=== PATIENT | female | born 1935 | race Caucasian/White ===

== ENCOUNTER 2022-03-15 09:39 | Emergency (ER) | payer MEDICARE, OTHER ==
[2022-03-15] MEDS ORDERED: Acetaminophen/HYDROcodone 325-10 MG Tab PO ONE (10:29)
== END 2022-03-15 11:15 | disposition home or self-care (01) ==
LOC: VM.ED 09:39
DX: S42.202A Unspecified fracture of upper end of left humerus, initial encounter for closed fracture (principal); J44.9 Chronic obstructive pulmonary disease, unspecified; W19.XXXA Unspecified fall, initial encounter; Y92.524 Gas station as the place of occurrence of the external cause
CPT/HCPCS: 73030-LT; 73060-LT; 73070-LT; 99283; A9270-GY

== ENCOUNTER 2023-01-05 22:39 | Inpatient (IN) | payer MEDICARE, OTHER ==
[2023-01-05] MEDS ORDERED: Albuterol/Ipratropium 3.0-0.5 MG/3 ML Neb Soln NEB ONE (22:46)
[2023-01-05 23:10] LABS: BASOPHILS PERCENT AUTO 0.3 % (0.2-1.2); EOSINOPHILS PERCENT AUTO 0.3 % (0.0-4.0); HEMOGLOBIN 13.4 g/dL (12.0-16.0); IMMATURE GRAN ABSOLUTE AUTO 0.05 x10^3/uL (0.00-0.07); LYMPHOCYTES ABSOLUTE AUTO 1.1 x10^3/uL (1.0-4.8); LYMPHOCYTES PERCENT AUTO 9.7 % (25.0-50.0); MEAN CORPUSCULAR HEMOGLOBIN 32.7 pg (26.0-32.0); MEAN CORPUSCULAR HGB CONC 34.4 g/dL (32.0-36.0); MEAN CORPUSCULAR VOLUME 95.1 fL (78.0-93.0); MONOCYTES ABSOLUTE AUTO 0.8 x10^3/uL (0.0-0.8); MONOCYTES PERCENT AUTO 7.1 % (2.0-11.0); NEUTROPHILS ABSOLUTE AUTO 9.4 x10^3/uL (1.8-7.7); NEUTROPHILS PERCENT AUTO 82.2 % (50.0-80.0); PLATELET COUNT,PLT 298 x10^3/uL (130-400); WHITE BLOOD CELL COUNT,WBC 11.4 x10^3/uL (4.0-10.0)
[2023-01-05 23:20] LABS: BLOOD UREA NITROGEN,BUN 10 mg/dL (7-18); CALCIUM 9.7 mg/dL (8.5-10.1); CARBON DIOXIDE,CO2 32 mmol/L (21-32); CHLORIDE,CL 97 mmol/L (98-107); CREATININE 0.8 mg/dL (0.55-1.02); GLUCOSE RANDOM 108 mg/dL (70-99); SODIUM,NA 138 mmol/L (136-145)
[2023-01-05 23:21] LABS: ANION GAP 11.7 mmol/L (5-15); ESTIMATED GFR 70 mL/min (>=60); POTASSIUM,K 2.7 mmol/L (3.5-5.1)
[2023-01-05] MEDS: Benzonatate 100 MG Cap PO PRN (23:27)
[2023-01-05] MEDS ORDERED: Potassium Chloride 20 MEQ Tab.ER PO ONE (23:28)
[2023-01-05 23:35] LABS: CORONAVIRUS COVID-19 NAA NEGATIVE (NEGATIVE); INFLUENZA A NAA NEGATIVE (NEGATIVE); INFLUENZA B NAA NEGATIVE (NEGATIVE); RESPIRATORY SYNCYTIAL VIR NAA NEGATIVE (NEGATIVE)
[2023-01-06] MEDS ORDERED: cefTRIAXone 1 GM Vial IVPUSH ONE (00:05)
[2023-01-06] MEDS ORDERED: Azithromycin 500 MG in Sodium Chloride 0.9% 250 ML IV ONE (00:05)
[2023-01-06] MEDS ORDERED: Albuterol 0.042% 1.25 MG/3 ML Neb Soln NEB PRN (03:28)
[2023-01-06] MEDS: Pantoprazole 40 MG Tab.CR PO SCH (06:36)
[2023-01-06] MEDS: Aspirin 325 MG Tab.EC PO SCH (08:40)
[2023-01-06] MEDS: Formoterol/Mometasone 200-5 MCG 13 GM Inhaler INH SCH ×2 (08:40→20:57)
[2023-01-06] MEDS: Potassium Chloride 20 MEQ Tab.ER PO SCH ×4 (08:41→20:58)
[2023-01-06] MEDS: Hydrochlorothiazide 25 MG Tab PO SCH (08:41)
[2023-01-06] MEDS: Tiotropium Bromide 4 GM Inhalation Spray (2.5mcg/1 dose; 10 doses) INH SCH (08:42)
[2023-01-06] MEDS ORDERED: Acetaminophen 325 MG Tab PO PRN (10:37)
[2023-01-06] MEDS ORDERED: Docusate Sodium 100 MG Cap PO PRN (10:37)
[2023-01-06] MEDS ORDERED: Ondansetron 4 MG Tab.DIS PO PRN (10:37)
[2023-01-06] MEDS: Albuterol/Ipratropium 3.0-0.5 MG/3 ML Neb Soln NEB SCH ×4 (11:40→22:01)
[2023-01-06] MEDS: methylPREDNISolone Sodium Succinate 40 MG/1 ML SDV IVPUSH SCH ×3 (11:40→22:01)
[2023-01-06] MEDS: Benzonatate 100 MG Cap PO PRN ×2 (12:19→20:58)
[2023-01-06] MEDS: Enoxaparin 40 MG/0.4 ML Syringe SUBCUT SCH (20:55)
[2023-01-06] MEDS: Zolpidem 5 MG Tab PO PRN (20:58)
[2023-01-06] MEDS: guaiFENesin 600 MG Tab.ER PO SCH (20:59)
[2023-01-06] MEDS: Simvastatin 20 MG Tab PO SCH (20:59)
[2023-01-07] MEDS: Albuterol/Ipratropium 3.0-0.5 MG/3 ML Neb Soln NEB SCH ×6 (03:00→22:09)
[2023-01-07] MEDS: methylPREDNISolone Sodium Succinate 40 MG/1 ML SDV IVPUSH SCH ×4 (05:56→22:09)
[2023-01-07] MEDS: Pantoprazole 40 MG Tab.CR PO SCH (06:21)
[2023-01-07] MEDS: Formoterol/Mometasone 200-5 MCG 13 GM Inhaler INH SCH ×2 (08:21→20:09)
[2023-01-07] MEDS: Tiotropium Bromide 4 GM Inhalation Spray (2.5mcg/1 dose; 10 doses) INH SCH (08:21)
[2023-01-07] MEDS: Potassium Chloride 20 MEQ Tab.ER PO SCH ×4 (08:22→20:08)
[2023-01-07] MEDS: guaiFENesin 600 MG Tab.ER PO SCH ×2 (08:23→20:08)
[2023-01-07] MEDS: Aspirin 325 MG Tab.EC PO SCH (08:23)
[2023-01-07] MEDS: Hydrochlorothiazide 25 MG Tab PO SCH (08:28)
[2023-01-07 08:35] LABS: BASOPHILS PERCENT AUTO 0.1 % (0.2-1.2); HEMATOCRIT 36.4 % (33.0-47.0); HEMOGLOBIN 12.4 g/dL (12.0-16.0); LYMPHOCYTES ABSOLUTE AUTO 0.8 x10^3/uL (1.0-4.8); LYMPHOCYTES PERCENT AUTO 4.4 % (25.0-50.0); MEAN CORPUSCULAR HEMOGLOBIN 32.6 pg (26.0-32.0); MEAN CORPUSCULAR HGB CONC 34.1 g/dL (32.0-36.0); MEAN CORPUSCULAR VOLUME 95.8 fL (78.0-93.0); MONOCYTES ABSOLUTE AUTO 0.4 x10^3/uL (0.0-0.8); MONOCYTES PERCENT AUTO 2.4 % (2.0-11.0); NEUTROPHILS ABSOLUTE AUTO 16.3 x10^3/uL (1.8-7.7); NEUTROPHILS PERCENT AUTO 92.5 % (50.0-80.0); PLATELET COUNT,PLT 315 x10^3/uL (130-400)
[2023-01-07 08:56] LABS: CALCIUM 9.8 mg/dL (8.5-10.1); CREATININE 0.8 mg/dL (0.55-1.02); EST CRCL DRUG DOSING (CG) 36.6 mL/min; MAGNESIUM 1.9 mg/dL (1.8-2.4); POTASSIUM,K 4.2 mmol/L (3.5-5.1)
[2023-01-07 08:58] LABS: ANION GAP 13.2 mmol/L (5-15)
[2023-01-07] MEDS ORDERED: Azithromycin 500 MG in Sodium Chloride 0.9% 250 ML IV SCH (09:00)
[2023-01-07 09:15] LABS: WHITE BLOOD CELL COUNT,WBC 17.6 x10^3/uL (4.0-10.0)
[2023-01-07] MEDS: Benzonatate 100 MG Cap PO PRN (16:54)
[2023-01-07] MEDS: Enoxaparin 40 MG/0.4 ML Syringe SUBCUT SCH (20:08)
[2023-01-07] MEDS: Zolpidem 5 MG Tab PO PRN (20:09)
[2023-01-07] MEDS: Simvastatin 20 MG Tab PO SCH (20:09)
[2023-01-07] MEDS ORDERED: cefTRIAXone 1 GM Vial IVPUSH SCH (21:30)
[2023-01-08] MEDS: Albuterol/Ipratropium 3.0-0.5 MG/3 ML Neb Soln NEB SCH ×4 (02:41→18:22)
[2023-01-08] MEDS: methylPREDNISolone Sodium Succinate 40 MG/1 ML SDV IVPUSH SCH (05:50)
[2023-01-08] MEDS: Pantoprazole 40 MG Tab.CR PO SCH (06:02)
[2023-01-08 07:07] LABS: HEMATOCRIT 32.5 % (33.0-47.0); HEMOGLOBIN 11.2 g/dL (12.0-16.0); MEAN CORPUSCULAR HGB CONC 34.5 g/dL (32.0-36.0); MEAN CORPUSCULAR VOLUME 95.9 fL (78.0-93.0); PLATELET COUNT,PLT 289 x10^3/uL (130-400); RED BLOOD CELL COUNT 3.39 x10^6/uL (4.00-5.50)
[2023-01-08 07:18] LABS: CALCIUM 8.9 mg/dL (8.5-10.1); CREATININE 0.7 mg/dL (0.55-1.02); EST CRCL DRUG DOSING (CG) 41.82 mL/min; POTASSIUM,K 4.4 mmol/L (3.5-5.1)
[2023-01-08 07:20] LABS: ANION GAP 11.4 mmol/L (5-15)
[2023-01-08 07:26] LABS: WHITE BLOOD CELL COUNT,WBC 22.4 x10^3/uL (4.0-10.0)
[2023-01-08 07:28] LABS: ANISOCYTOSIS 1+ SLIGHT; BAND PERCENT MAN 12 % (0-6); LYMPHOCYTES ABSOLUTE MAN 0.7 x10^3/uL (1.0-4.8); LYMPHOCYTES PERCENT MAN 3 % (25-50); MONOCYTES ABSOLUTE MAN 0.4 x10^3/uL (0.0-0.8); MONOCYTES PERCENT MAN 2 % (2-11); NEUTROPHILS ABSOLUTE MAN 21.3 x10^3/uL (1.8-7.7); SEG NEUTROPHILS PERCENT MAN 83 % (50-80)
[2023-01-08 07:29] LABS: HYPOCHROMASIA 2+ MODERATE; PLATELET COUNT ESTIMATE ADEQUATE
[2023-01-08] MEDS: Cefuroxime 250 MG Tab PO SCH ×2 (09:37→20:00)
[2023-01-08] MEDS: Hydrochlorothiazide 25 MG Tab PO SCH (09:37)
[2023-01-08] MEDS: Azithromycin 250 MG Tab PO SCH (09:37)
[2023-01-08] MEDS: guaiFENesin 600 MG Tab.ER PO SCH ×2 (09:38→19:59)
[2023-01-08] MEDS: predniSONE 20 MG Tab PO SCH (09:38)
[2023-01-08] MEDS: Aspirin 325 MG Tab.EC PO SCH (09:38)
[2023-01-08] MEDS: Potassium Chloride 20 MEQ Tab.ER PO SCH ×2 (09:38→18:22)
[2023-01-08] MEDS: Formoterol/Mometasone 200-5 MCG 13 GM Inhaler INH SCH ×2 (09:39→20:01)
[2023-01-08] MEDS: Tiotropium Bromide 4 GM Inhalation Spray (2.5mcg/1 dose; 10 doses) INH SCH (09:39)
[2023-01-08] MEDS ORDERED: Iopamidol 612 MG/ML 100 ML Bottle IVPUSH ONE (10:11)
[2023-01-08] MEDS: Enoxaparin 40 MG/0.4 ML Syringe SUBCUT SCH (19:56)
[2023-01-08] MEDS: Benzonatate 100 MG Cap PO PRN (19:59)
[2023-01-08] MEDS: Simvastatin 20 MG Tab PO SCH (20:00)
[2023-01-08] MEDS: Zolpidem 5 MG Tab PO PRN (20:00)
[2023-01-09] MEDS: Albuterol/Ipratropium 3.0-0.5 MG/3 ML Neb Soln NEB SCH ×4 (01:16→19:45)
[2023-01-09] MEDS: Pantoprazole 40 MG Tab.CR PO SCH (06:10)
[2023-01-09 06:52] LABS: BASOPHILS PERCENT AUTO 0.1 % (0.2-1.2); EOSINOPHILS PERCENT AUTO 0.1 % (0.0-4.0); HEMATOCRIT 33.1 % (33.0-47.0); HEMOGLOBIN 11.3 g/dL (12.0-16.0); LYMPHOCYTES ABSOLUTE AUTO 0.7 x10^3/uL (1.0-4.8); LYMPHOCYTES PERCENT AUTO 4.2 % (25.0-50.0); MEAN CORPUSCULAR HEMOGLOBIN 32.8 pg (26.0-32.0); MEAN CORPUSCULAR HGB CONC 34.1 g/dL (32.0-36.0); MEAN CORPUSCULAR VOLUME 96.2 fL (78.0-93.0); MONOCYTES ABSOLUTE AUTO 1.2 x10^3/uL (0.0-0.8); MONOCYTES PERCENT AUTO 6.6 % (2.0-11.0); NEUTROPHILS ABSOLUTE AUTO 15.3 x10^3/uL (1.8-7.7); NEUTROPHILS PERCENT AUTO 88.4 % (50.0-80.0); PLATELET COUNT,PLT 300 x10^3/uL (130-400); RED BLOOD CELL COUNT 3.44 x10^6/uL (4.00-5.50)
[2023-01-09 07:09] LABS: WHITE BLOOD CELL COUNT,WBC 17.3 x10^3/uL (4.0-10.0)
[2023-01-09 07:13] LABS: C-REACTIVE PROTEIN 2.13 mg/dL (<=0.50); CALCIUM 9.2 mg/dL (8.5-10.1); CREATININE 0.7 mg/dL (0.55-1.02); EST CRCL DRUG DOSING (CG) 41.82 mL/min; POTASSIUM,K 4.4 mmol/L (3.5-5.1)
[2023-01-09 07:16] LABS: ANION GAP 12.4 mmol/L (5-15)
[2023-01-09] MEDS: Formoterol/Mometasone 200-5 MCG 13 GM Inhaler INH SCH ×2 (08:04→20:51)
[2023-01-09] MEDS: Tiotropium Bromide 4 GM Inhalation Spray (2.5mcg/1 dose; 10 doses) INH SCH (08:05)
[2023-01-09] MEDS: Cefuroxime 250 MG Tab PO SCH ×2 (08:05→20:00)
[2023-01-09] MEDS: Potassium Chloride 20 MEQ Tab.ER PO SCH ×2 (08:06→18:24)
[2023-01-09] MEDS: Aspirin 325 MG Tab.EC PO SCH (08:06)
[2023-01-09] MEDS: Azithromycin 250 MG Tab PO SCH (08:07)
[2023-01-09] MEDS: predniSONE 20 MG Tab PO SCH (08:08)
[2023-01-09] MEDS: guaiFENesin 600 MG Tab.ER PO SCH ×2 (08:08→20:00)
[2023-01-09] MEDS: Hydrochlorothiazide 25 MG Tab PO SCH (08:09)
[2023-01-09] MEDS: Enoxaparin 40 MG/0.4 ML Syringe SUBCUT SCH (19:47)
[2023-01-09] MEDS: Simvastatin 20 MG Tab PO SCH (20:00)
[2023-01-09] MEDS: Zolpidem 5 MG Tab PO PRN (20:00)
[2023-01-10] MEDS: Albuterol/Ipratropium 3.0-0.5 MG/3 ML Neb Soln NEB SCH ×3 (00:50→12:50)
[2023-01-10] MEDS: Pantoprazole 40 MG Tab.CR PO SCH (06:02)
[2023-01-10 07:12] LABS: HEMATOCRIT 35.9 % (33.0-47.0); IMMATURE GRAN ABSOLUTE AUTO 0.17 x10^3/uL (0.00-0.07); LYMPHOCYTES PERCENT AUTO 7.7 % (25.0-50.0); MEAN CORPUSCULAR HEMOGLOBIN 32.3 pg (26.0-32.0); MEAN CORPUSCULAR HGB CONC 33.4 g/dL (32.0-36.0); MEAN CORPUSCULAR VOLUME 96.5 fL (78.0-93.0); MONOCYTES ABSOLUTE AUTO 1.2 x10^3/uL (0.0-0.8); NEUTROPHILS ABSOLUTE AUTO 10.6 x10^3/uL (1.8-7.7); PLATELET COUNT,PLT 304 x10^3/uL (130-400); RED BLOOD CELL COUNT 3.72 x10^6/uL (4.00-5.50)
[2023-01-10 07:44] LABS: CREATININE 0.7 mg/dL (0.55-1.02); EST CRCL DRUG DOSING (CG) 41.82 mL/min; POTASSIUM,K 4.4 mmol/L (3.5-5.1)
[2023-01-10 07:45] LABS: ANION GAP 10.4 mmol/L (5-15)
[2023-01-10] MEDS: Hydrochlorothiazide 25 MG Tab PO SCH (08:10)
[2023-01-10] MEDS: Azithromycin 250 MG Tab PO SCH (08:10)
[2023-01-10] MEDS: Cefuroxime 250 MG Tab PO SCH (08:10)
[2023-01-10] MEDS: Potassium Chloride 20 MEQ Tab.ER PO SCH (08:11)
[2023-01-10] MEDS: Aspirin 325 MG Tab.EC PO SCH (08:11)
[2023-01-10] MEDS: predniSONE 20 MG Tab PO SCH (08:11)
[2023-01-10] MEDS: guaiFENesin 600 MG Tab.ER PO SCH (08:11)
[2023-01-10] MEDS: Tiotropium Bromide 4 GM Inhalation Spray (2.5mcg/1 dose; 10 doses) INH SCH (08:15)
[2023-01-10] MEDS: Formoterol/Mometasone 200-5 MCG 13 GM Inhaler INH SCH (08:15)
== END 2023-01-10 13:43 | disposition home health service (06) | DRG 640 ==
LOC: VM.ED 22:39 → VM.MS 01-06 00:30 → UNDOADMIN 01-06 00:30 → VM.MS 01-06 01:50 → UNDODISIN 01-10 13:43
PROVIDERS: ADMIT Physician Assistant; ATTEND Family Medicine
DX: E87.6 Hypokalemia (principal); J90 Pleural effusion, not elsewhere classified; J18.9 Pneumonia, unspecified organism; J44.0 Chronic obstructive pulmonary disease with (acute) lower respiratory infection; Z20.822 Contact with and (suspected) exposure to COVID-19; I10 Essential (primary) hypertension; J44.1 Chronic obstructive pulmonary disease with (acute) exacerbation; E87.1 Hypo-osmolality and hyponatremia; Z66 Do not resuscitate; R91.8 Other nonspecific abnormal finding of lung field; H54.7 Unspecified visual loss; I11.0 Hypertensive heart disease with heart failure; I50.9 Heart failure, unspecified; F41.9 Anxiety disorder, unspecified; K21.9 Gastro-esophageal reflux disease without esophagitis; G43.909 Migraine, unspecified, not intractable, without status migrainosus; E78.00 Pure hypercholesterolemia, unspecified; F51.01 Primary insomnia; Z87.891 Personal history of nicotine dependence; Z11.52 Encounter for screening for COVID-19; Z79.51 Long term (current) use of inhaled steroids; Z79.82 Long term (current) use of aspirin; Z79.899 Other long term (current) drug therapy
CPT/HCPCS: 0241U; 36415; 71046; 71260; 80048; 83605; 83735; 83880; 85025; 86140; 87205; 94640; 94760; 96365; 96375; 97161-GP; 97165-GO; 99284; 99285-25; A9270-GY; J0456; J0696; J1650; J2920; J7050; J7512; J7620-GY; Q9967